=== PATIENT | female | born 1950 | race Caucasian/White ===

== ENCOUNTER 2017-09-16 18:43 | Observation (INO) | payer OTHER, MEDICARE ==
[~2017-09-16] VITALS: Ht 167.6 cm; Wt 104.3 kg
[2017-09-16 20:20] LABS: ABSOLUTE BASOPHIL COUNT 0 /CUMM (0.0-0.2); ABSOLUTE EOSINOPHIL COUNT 0.1 /CUMM (0.0-0.7); ABSOLUTE GRANULOCYTE CT 8.3 /CUMM (1.4-6.5); ABSOLUTE LYMPH COUNT 1.5 /CUMM (1.2-3.4); ABSOLUTE MONOCYTE COUNT 0.8 /CUMM (0.10-0.60); BASOPHIL % 0.4 % (0.0-2.0); GRANULOCYTE % 77.6 % (42.2-75.2); HEMATOCRIT 44.4 % (37-47); MEAN CORPUSCULAR HGB 28.9 PG (27.0-31.0); MEAN CORPUSCULAR HGB CONC 33.7 G/DL (33.0-37.0); MEAN CORPUSCULAR VOLUME 85.9 FL (81.0-99.0); PLATELET COUNT 215 /CUMM (130-400); RED BLOOD CELL CT 5.18 /CUMM (4.20-5.40); WHITE BLOOD CELL COUNT 10.7 /CUMM (4.8-10.8)
--- NOTE | 2017-09-16 21:05 | ED GI/GU/ABDOMINAL COMPLAINT ---
History of Present Illness General Chief Complaint: Abdominal Pain/Flank Pain Stated Complaint: ABDOMINAL PAIN Source: patient Exam Limitations: no limitations Vital Signs & Intake/Output Vital Signs & Intake/Output Vital Signs Date Time Temp Pulse Resp B/P B/P Pulse O2 O2 Flow FiO2 Mean Ox Delivery Rate 09/17 0212 98.3 81 18 148/86 96 Room Air 09/17 0135 97.8 89 18 134/88 96 Room Air 09/16 2237 99.1 93 18 156/94 98 Room Air 09/16 2146 Room Air 09/16 1901 97.6 94 18 166/86 99 Room Air ED Intake and Output 09/17 0000 09/16 1200 Intake Total 0 Output Total Balance 0 Intake, Oral 0 Patient 230 lb Weight Weight Reported by Patient Measurement Method Allergies Coded Allergies: No Known Allergies (09/16/17) Reconcile Medications Venlafaxine HCl (Venlafaxine HCl ER) 75 MG CAP.ER.24H 1 CAP PO DAILY MENTAL HEALTH (Reported) Triage Note: PT HAVING ABD PAIN STATES SHE HAS HX OF HERNIAS ON AND OFF FOR TWO WEEKS. PT STATES LAST WEEK SHE WAS VOMITING WHAT LOOKED LIKE STOOL. PT STATES SHE WENT TO HOSPITAL AND WAS TOLD SHE HAD A SMALL BLOCKAGE. PT HAD NG TUBE PLACED AND IT FIXED IT. PT STATES SHE HAD A SALAD AT LUNCH AND THEN BEGAN TO HAVE PAIN ON AND OFF AGAIN. PT STATES SHE THEN VOMITED. PT STATES SHE DID MOVE HER BOWELS TODAY. Triage Nurses Notes Reviewed? yes ? N Is pt currently ? No Duration: better Timing: recent history Quality/Severity: mild Severity Numbers: 1 Radiation: no radiation HPI: Patient is a 67-year-old female with a past medical history of approximate 5 years ago having a spontaneous perforation of colon or patient had a colostomy with reversal performed, patient states that approximately 2 weeks ago while in [place] she had abdominal pain and was observed in the small local hospital where her symptoms resolved she continue with her vacation however last week her pain exacerbated along with nausea and vomiting patient was seen at [facility] and was admitted for concerns of small bowel structure patient had an NG tube placed and patient had a spontaneous resolution of the obstruction, patient states that this week she has been complaining of mild achy abdominal discomfort and today after eating a chicken salad she had gradual onset of worsening abdominal pain that progressed to severe abdominal pain with retching bilious emesis and loose watery diarrhea production with no blood no melena. Patient states that symptoms of pain and nausea have completely resolved prior to being evaluated while waiting in the emergency room Patient denies any fever chills chest pain shortness of breath. (Paulie Vidal) Past History Travel History Traveled to [place] past 21 day No Medical History Any Pertinent Medical History? see below for history Gastrointestinal: PERF COLON COLOSTOMY REVERSED Surgical History Surgical History: colon resection Psychosocial History What is your primary language [place] Citizen Tobacco Use: Never used ETOH Use: occasional use Illicit Drug Use: denies illicit drug use Family History Hx Contributory? No (Paulie Vidal) Review of Systems Review of Systems Constitutional: Reports: no symptoms. EENTM: Reports: no symptoms. Respiratory: Reports: no symptoms. Cardiovascular: Reports: no symptoms. GI: Reports: see HPI. Genitourinary: Reports: no symptoms. Musculoskeletal: Reports: no symptoms. Skin: Reports: no symptoms. Neurological/Psychological: Reports: no symptoms. Hematologic/Endocrine: Reports: no symptoms. Immunologic/Allergic: Reports: no symptoms. All Other Systems: Reviewed and Negative (Paulie Vidal) Physical Exam Physical Exam General Appearance: no apparent distress, obese Head: atraumatic Eyes: Bilateral: normal appearance. Ears, Nose, Throat, Mouth: moist mucous membrane Neck: normal inspection Respiratory: no respiratory distress Cardiovascular: regular rate/rhythm Gastrointestinal: soft, non-tender Extremities: normal range of motion Skin: intact, normal color Core Measures ACS in differential dx? No Sepsis Present: No Sepsis Focused Exam Completed? No (Paulie Vidal) Progress Differential Diagnosis: AAA, AMI, appendicitis, biliary colic, bowel obstruction , colon cancer, cholecystitis, diverticulitis, endometritis, esophageal varices, gastritis, hepatitis, hernia, hemorrhoids, ischemic bowel, inflamm bowel dis, intrauterine , kidney stone, Jeanie-Linda tear, ovarian cyst, ovarian torsion, pancreatitis, PID/cervicitis, peptic ulcer, PUD/GERD, perforated viscous, SBO, UTI/pyelo Plan of Care: Orders Procedure Date/time Status Nothing by Mouth 09/17 B Active CBC WITHOUT DIFFERENTIAL 09/17 599 Active BASIC ELECTROLYTES PLUS BUN&CR 09/17 599 Active Weight 09/17 200 Active Vital Signs 09/17 200 Active Teach/Educate 09/17 200 Active Pain Treatment and Response 09/17 200 Active Nutritional Intake, Monitor 09/17 200 Active Isolation 09/17 020 Active Intake & Output 09/17 200 Active Patient Care Conference 09/17 200 Active Activity/Ambulation 09/17 200 Active Pathway - chart 09/17 010 Active Patient Data 09/17 010 Active Code Status 09/[address] in observation 09/17 UNK Active VTE Mechanical Prophylaxis 09/17 UNK Active Vital Signs 09/17 UNK Complete Intake & Output 09/17 UNK Active Activity/Ambulation 09/17 UNK Active ED Holding Orders 09/16 2354 Active Vital Signs 09/16 2354 Active Code Status 09/16 2354 Complete TROPONIN LEVEL 09/16 1924 Complete LIPASE 09/16 1924 Complete HEPATIC FUNCTION PANEL 09/16 1924 Complete CBC WITHOUT DIFFERENTIAL 09/16 1924 Complete BASIC METABOLIC PANEL 09/16 1924 Complete AMYLASE 09/16 1924 Complete EKG 09/16 1924 Active Current Medications Sig/Neda Start time Last Medication Dose Stop Time Status Admin Pantoprazole Sodium 40 MG DAILY 09/17 0900 AC (Protonix) Heparin Sodium 5,000 UNIT Q8 09/17 0600 AC (Porcine) Acetaminophen 1,000 MG Q6P PRN 09/17 011 AC (Ofirmev) N/A 1 UNIT (No Carrier) Dextrose/Sodium 1,000 ML .Q8H 09/17 0115 AC 09/17 Chloride 0205 (D5-Normal Saline) Morphine Sulfate 2 MG Q3P PRN 09/17 0115 AC 09/17 (MORPHINE SULFATE) 0135 Morphine Sulfate 4 MG Q3P PRN 09/17 011 AC (MORPHINE SULFATE) Ondansetron HCl 4 MG Q6-PRN PRN 09/17 011 AC (Zofran) Laboratory Tests 09/16/172009: Anion Gap 16, Estimated GFR > 60, BUN/Creatinine Ratio 20.0, Glucose 120 H, Calcium 10.4 H, Total Bilirubin 0.3, Direct Bilirubin 0.2, AST 30, ALT 62 H, Alkaline Phosphatase 82, Troponin I < 0.01, Total Protein 7.6, Albumin 4.6, Amylase 124 H, Lipase 389 H, CBC w Diff NO MAN DIFF REQ, RBC 5.18, MCV 85.9, MCH 28.9, MCHC 33.7, RDW 13.0, MPV 10.0, Gran % 77.6 H, Lymphocytes % 14.0 L, Monocytes % 7.0, Eosinophils % 1.0, Basophils % 0.4, Absolute Granulocytes 8.3 H, Absolute Lymphocytes 1.5, Absolute Monocytes 0.8 H, Absolute Eosinophils 0.1 , Absolute Basophils 0 Patient currently is resting comfortably at bedside states that all nausea vomiting and pain has resolved patient was offered medications for her presenting complaints however declines. 2227- patient states he had exacerbation of pain morphine was administered 2244- SURGERY WAS PAGED 2339 - SURGERY WAS PAGED discussed patient with Gilberto Jones MD was aware of patient's clinical presentation and will admit the patient. Discussed patient with surgical PA discussed disposition plan with patient and family members were aware and agree 0012 patient currently is resting currently denies any nausea vomiting or abdominal pain Diagnostic Imaging: Viewed by Me: CT Scan. Radiology Impression: acute abnormality Initial ED EKG: none Comments: PATIENT: LORRAINE SOLIZ PRESENT AGE: 67 PATIENT ACCOUNT NO: [id number] : 51 LOCATION: [facility] ORDERING PHYSICIAN: Paulie LEON SERVICE DATE: 09/16/17 EXAM TYPE: CAT - CT ABD & PELVIS W IV CONTRAST EXAMINATION: CT ABDOMEN AND PELVIS WITH CONTRAST CLINICAL INFORMATION: Abdominal pain. Concern for obstruction. COMPARISON: None. TECHNIQUE: Contiguous axial thin section helical images of the abdomen and pelvis were performed following the administration of 95 mL of intravenous Optiray 320. The data set was reformatted in the coronal and sagittal planes and reviewed on an independent workstation. DLP: 1162 mGy-cm. FINDINGS: The visualized lung bases are clear. The visualized portions of the heart are unremarkable. There is a small hiatal hernia. The liver is of normal size and diffuse decreased attenuation without focal lesions nor intrahepatic biliary ductal dilation. A normal gallbladder is identified. There is no wall thickening or discernible pericholecystic fluid. The spleen, pancreas, adrenal glands are unremarkable. Both kidneys are of normal size and attenuation without hydronephrosis or nephrolithiasis. Following the administration of IV contrast, prompt symmetric nephrograms are displayed. There is no abdominal free fluid. There is neither mesenteric nor retroperitoneal lymphadenopathy. There are multiple anterior abdominal wall defects through which passes fat and bowel. There are numerous dilated loops of small bowel with several air-fluid levels indicative of a distal small bowel obstruction, though possibly present at multiple locations. There is no pelvic free fluid. The urinary bladder is unremarkable. There is neither pelvic nor inguinal lymphadenopathy. Bone windows: Neither sclerotic nor lytic bone lesions are identified. IMPRESSION: Multiple dilated loops of small bowel passing through multiple anterior abdominal wall defects. The appearance is phlebotomy services representative of a distal small bowel obstruction, though there may be multiple sites of obstruction. Hepatic steatosis. Small hiatal hernia. DICTATED BY: Frankie Lucero MD DATE/TIME DICTATED:09/16/172228 (Paulie Vidal) Departure Departure Disposition: STILL A PATIENT Condition: Guarded Clinical Impression Primary Impression: Bowel obstruction Referrals: Veronique Arredondo (PCP/Family) Departure Forms: Customer Survey General Discharge Information Admission Note Spoke With: Robert LAKHANI,Gilberto Greer Documentation of Exam: Documentation of any treatments & extenuating circumstances including Concerns Regarding Discharge (functional status, medication knowledge or non-compliance, living conditions, etc.) that warrant an admission rather than observation: [ Patient requires close monitoring frequent abdominal exams serial imaging pain management anti-emetics repeat labs and surgery consultation and possible surgical intervention for small bowel distraction] (Paulie Vidal) PA/PR SPECIALIST Co-Sign Statement Statement: ED Attending supervision documentation- [x] I saw and evaluated the patient. I have also reviewed all the pertinent lab results and diagnostic results. I agree with the findings and the plan of care as documented in the PA's/PR SPECIALIST's documentation. [] I have reviewed the ED Record and agree with the PA's/PR SPECIALIST's documentation. [] Additions or exceptions (if any) to the PAs/PR SPECIALIST's note and plan are summarized below: [] (Kacey LAKHANI,Jermaine Zaidi)
--- NOTE | 2017-09-16 22:41 | CT SCAN REPORT ---
EXAMINATION: CT ABDOMEN AND PELVIS WITH CONTRAST CLINICAL INFORMATION: Abdominal pain. Concern for obstruction. COMPARISON: None. TECHNIQUE: Contiguous axial thin section helical images of the abdomen and pelvis were performed following the administration of 95 mL of intravenous Optiray 320. The data set was reformatted in the coronal and sagittal planes and reviewed on an independent workstation. DLP: 1162 mGy-cm. FINDINGS: The visualized lung bases are clear. The visualized portions of the heart are unremarkable. There is a small hiatal hernia. The liver is of normal size and diffuse decreased attenuation without focal lesions nor intrahepatic biliary ductal dilation. A normal gallbladder is identified. There is no wall thickening or discernible pericholecystic fluid. The spleen, pancreas, adrenal glands are unremarkable. Both kidneys are of normal size and attenuation without hydronephrosis or nephrolithiasis. Following the administration of IV contrast, prompt symmetric nephrograms are displayed. There is no abdominal free fluid. There is neither mesenteric nor retroperitoneal lymphadenopathy. There are multiple anterior abdominal wall defects through which passes fat and bowel. There are numerous dilated loops of small bowel with several air-fluid levels indicative of a distal small bowel obstruction, though possibly present at multiple locations. There is no pelvic free fluid. The urinary bladder is unremarkable. There is neither pelvic nor inguinal lymphadenopathy. Bone windows: Neither sclerotic nor lytic bone lesions are identified. IMPRESSION: Multiple dilated loops of small bowel passing through multiple anterior abdominal wall defects. The appearance is charter representative of a distal small bowel obstruction, though there may be multiple sites of obstruction. Hepatic steatosis. Small hiatal hernia.
[2017-09-16] MEDS ORDERED: VENLAFAXINE HCL75 M1 PO (23:07)
--- NOTE | 2017-09-17 00:09 | History & Physical Pre-Op ---
Génesis Hicks 09/17/17 0005: General Information and HPI History of Present Illness: 67F with crampy sharp colic abdominal pain, recently hospitalized x2 over last 10days while on vacation in [place]. She did feel "back to normal" after being tx conservatively with ngt in hospital until yesterday when this pain returned. Denies n/v, no cp, no sob. She is 5yrs sp hartmanns with colostomy and diverting loop ileostomy for perforated sigmoid, performed at [place], which all has been reversed. She has known mulitple ventral hernias which she has seen a surgeon for evaluation, and was instructed to loose weight prior to repair. She recently underwent L TKR due to OA in order to help her increase her activity level to loose weight. She has lost 35lbs since April. Up until 10 days ago, her hernias were asymptomatic. Of note, she is requesting Dr. Mendez as she works with his . PMHx: depression, oa sp L TKR 06/2017, mo, 5yr sp hartmanns with dli and reversal Allergies/Medications Allergies: Coded Allergies: No Known Allergies (09/16/17) Home Med list Venlafaxine HCl (Venlafaxine HCl ER) 75 MG CAP.ER.24H 1 CAP PO DAILY MENTAL HEALTH (Reported) Past History Medical History Gastrointestinal: hiatal hernia, PERForated COLON s/p hartmanns and reversal Musculoskeletal: osteoarthritis Psychiatric: depression Endocrine: obesity Surgical History Pertinent Surgical History: colon resection (hartmanns/dli sp reversal,2012), knee replacement (left, 2017) Past Family/Social History Psychosocial History Services at Home None Smoking Status: Never Smoked ETOH Use: occasional use Illicit Drug Use: denies illicit drug use Employment History Employment: Employed 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 Exam & Diagnostic Data Last 24 Hrs of Vital Signs/I&O Vital Signs Date Time Temp Pulse Resp B/P B/P Pulse O2 O2 Flow FiO2 Mean Ox Delivery Rate 09/167 99.1 93 18 156/94 98 Room Air 09/16 2146 Room Air 09/16 1901 97.6 94 18 166/86 99 Room Air Intake & Output 09/17 0800 09/17 0000 09/16 1600 Intake Total 0 Output Total Balance 0 Intake, Oral 0 Patient 230 lb Weight Weight Reported by Patient Measurement Method Physical Exam: gen-nad card-s1s2 rrr pulm-ctab abd-mo, multiple defects appreciated, nontender, no r/g, +bs, large easily reducible bulge to right of midline ext- calves soft nt bl Last 24 Hrs of Labs/Todd: Laboratory Tests 09/16/172009: Anion Gap 16, Estimated GFR > 60, BUN/Creatinine Ratio 20.0, Glucose 120 H, Calcium 10.4 H, Total Bilirubin 0.3, Direct Bilirubin 0.2, AST 30, ALT 62 H, Alkaline Phosphatase 82, Troponin I < 0.01, Total Protein 7.6, Albumin 4.6, Amylase 124 H, Lipase 389 H, CBC w Diff NO MAN DIFF REQ, RBC 5.18, MCV 85.9, MCH 28.9, MCHC 33.7, RDW 13.0, MPV 10.0, Gran % 77.6 H, Lymphocytes % 14.0 L, Monocytes % 7.0, Eosinophils % 1.0, Basophils % 0.4, Absolute Granulocytes 8.3 H, Absolute Lymphocytes 1.5, Absolute Monocytes 0.8 H, Absolute Eosinophils 0.1 , Absolute Basophils 0 Diagnostic Data Other Results SERVICE DATE: 09/16/17 EXAM TYPE: CAT - CT ABD & PELVIS W IV CONTRAST EXAMINATION: CT ABDOMEN AND PELVIS WITH CONTRAST CLINICAL INFORMATION: Abdominal pain. Concern for obstruction. COMPARISON: None. TECHNIQUE: Contiguous axial thin section helical images of the abdomen and pelvis were performed following the administration of 95 mL of intravenous Optiray 320. The data set was reformatted in the coronal and sagittal planes and reviewed on an independent workstation. DLP: 1162 mGy-cm. FINDINGS: The visualized lung bases are clear. The visualized portions of the heart are unremarkable. There is a small hiatal hernia. The liver is of normal size and diffuse decreased attenuation without focal lesions nor intrahepatic biliary ductal dilation. A normal gallbladder is identified. There is no wall thickening or discernible pericholecystic fluid. The spleen, pancreas, adrenal glands are unremarkable. Both kidneys are of normal size and attenuation without hydronephrosis or nephrolithiasis. Following the administration of IV contrast, prompt symmetric nephrograms are displayed. There is no abdominal free fluid. There is neither mesenteric nor retroperitoneal lymphadenopathy. There are multiple anterior abdominal wall defects through which passes fat and bowel. There are numerous dilated loops of small bowel with several air-fluid levels indicative of a distal small bowel obstruction, though possibly present at multiple locations. There is no pelvic free fluid. The urinary bladder is unremarkable. There is neither pelvic nor inguinal lymphadenopathy. Bone windows: Neither sclerotic nor lytic bone lesions are identified. IMPRESSION: Multiple dilated loops of small bowel passing through multiple anterior abdominal wall defects. The appearance is national sales representative of a distal small bowel obstruction, though there may be multiple sites of obstruction. Hepatic steatosis. Small hiatal hernia. Assessment/Plan Assessment/Plan: A- 67F with SBO due to multiple ventral hernias/loss of domain, HX hartmanns with dli sp reversal, stable. P- obs to surgical service will need surgical repair of hernias, likely this admission npo ngt if worsens iv meds ivf serial abd exams serial labs dvt ppx oob, ambulate dw Dr. Jones As Ranked By This Provider Problem List: 1. Bowel obstruction 2. Depression 3. Osteoarthritis 4. Obesity 5. Hx of resection of large bowel 6. History of total left knee replacement Ottoniel Mendez MD 09/17/17 0923: Attending MD Review Statement Attending Statement Attending MD Statement: examined this patient, discuss w/resident/PA/HOUSE PLAYER, reviewed images Attending Assessment/Plan: patient presents with small bowel obstruction related to adhesions and/or intermittent incarceration of vental/incisional hernia. Currently, pain is resolved and she denies n/v. Suspect rapid resolution of sbo, related to high fiber diet. CT images reviewed and discussed with radiology. There is site of obstruction at ventral hernia, but may be more related to adhesive band. There are two stoma site hernias as well but are not the site of obstruction. they are reducible and contain colon on imaging. Overall this is a complex process that would be best dealt with under less urgent circumstances. She has recurrent SBO, one week from last admission in [place]. Will require open hernia repair with lysis adhesions and repair of multiple abdominal wall hernias. Best approach to address the midline hernia would be bilateral components separation. However with the two stoma hernias, flaps will be compromized to a certain degree. She understands. Best outcome will be to allow sbo to resolve and allow for more weight loss to occur. However given two SBO in two weeks that chances for emergent process developing are much higher. Therefore recommend return next week for hernia repair at a time in which the bowel is not distended and less chance for enterotomy/prolonged ileus. Operative intervention this admission reserved for failure of nonoperative management of SBO.
--- NOTE | 2017-09-17 01:03 | Admission Core Measures ---
Acute Coronary Syndrome (CM) ACS Core Measures Acute Coronary Syndrome Diagnosis No Congestive Heart Failure (NEW) CHF Core Measures Congestive Heart Failure Diagnosis No Cerebrovascular Accident CVA Core Measures CVA/TIA Diagnosis No Venous Thromboembolism VTE Core Darrell (View Protocol) VTE Risk Factors Age>40 No Mechanical VTE Prophylaxis d/t N/A MechProphylax Ordered No VTE Pharm Prophylaxis d/t NA PharmProphylax ordered Problem List As ranked by this Provider includes Assessment & Plan 1. Bowel obstruction 2. Depression 3. Osteoarthritis 4. Obesity 5. Hx of resection of large bowel 6. History of total left knee replacement HOME MEDS Home Med List Venlafaxine HCl (Venlafaxine HCl ER) 75 MG CAP.ER.24H 1 CAP PO DAILY MENTAL HEALTH (Reported)
[2017-09-17 02:12] VITALS: BP 148/86
[2017-09-17 06:20] VITALS: BP 136/68
--- NOTE | 2017-09-17 08:07 | PN- General Surgery ---
Subjective Subjective: Patient reports pain has resolved since she came to the floor last night, however she is worried symptoms will return if she goes home. She denies nausea, vomiting, belching, flatus or having a BM. She reports having an appetite. She offers no other complaints. Objective Vital Signs and I&Os Vital Signs Date Time Temp Pulse Resp B/P B/P Pulse O2 O2 Flow FiO2 Mean Ox Delivery Rate 09/18 619 98.1 77 18 136/68 97 Room Air 09/17 0212 98.3 81 18 148/86 96 Room Air 09/17 0135 97.8 89 18 134/88 96 Room Air 09/16 223 99.1 93 18 156/94 98 Room Air 09/16 2146 Room Air 09/16 1901 97.6 94 18 166/86 99 Room Air Intake & Output 09/17 1600 09/17 0800 09/17 0000 09/16 1600 09/16 0800 09/16 0000 Intake Total 500 0 Output Total Balance 500 0 Intake, IV 500 Intake, Oral 0 Patient 230 lb 230 lb Weight Weight Bed scale Reported by Patient Measurement Method Physical Exam: Gen - resting comfortably in nad Cardiac - S1S2 noted Lungs - CTAB Abd - soft, obese, multiple defects appreciated, faint bs, slightly tympanic, nontender, no rebound or guarding noted Ext - no edema or calf tenderness Current Medications: Current Medications Sig/Neda Start time Last Medication Dose Route Stop Time Status Admin Acetaminophen 1,000 MG Q6P PRN 09/17 114 AC N/A 1 UNIT IV Dextrose/Sodium 1,000 ML .Q8H 09/17 011 AC 09/17 Chloride IV 0205 Heparin Sodium 5,000 UNIT Q8 09/17 0600 AC 09/17 (Porcine) SC 0620 Morphine Sulfate 0 .STK-MED ONE 09/17 013 DC .ROUTE Morphine Sulfate 2 MG Q3P PRN 09/17 011 AC 09/17 IV 0135 Morphine Sulfate 4 MG Q3P PRN 09/17 114 IV Morphine Sulfate 0 .STK-MED ONE 09/16 2234 DC .ROUTE Morphine Sulfate 2 MG ONCE ONE 09/16 2229 DC 09/16 IV 09/16 Ondansetron HCl 4 MG Q6-PRN PRN 09/17 114 IV Pantoprazole Sodium 40 MG DAILY 09/17 09 AC IV Sodium Chloride 1,000 ML BOLUS ONE 09/17 0045 DC 09/17 IV 09/17 0244 0100 Results Last 48 Hours of Labs: Laboratory Tests 09/17 Chemistry Sodium (137 - 145 mmol/L) Pending 144 Potassium (3.5 - 5.1 mmol/L) Pending 4.0 Chloride (98 - 107 mmol/L) Pending 102 Carbon Dioxide (22 - 30 mmol/L) Pending 27 Anion Gap (5 - 16) Pending 16 BUN (7 - 17 mg/dL) Pending 12 Creatinine (0.5 - 1.0 mg/dL) Pending 0.6 Estimated GFR (>60 ml/min) > 60 BUN/Creatinine Ratio (7 - 25 %) Pending 20.0 Glucose (65 - 99 mg/dL) 120 H Calcium (8.4 - 10.2 mg/dL) 10.4 H Total Bilirubin (0.2 - 1.3 mg/dL) 0.3 Direct Bilirubin (< 0.4 mg/dL) 0.2 AST (14 - 36 U/L) 30 ALT (9 - 52 U/L) 62 H Alkaline Phosphatase (<127 U/L) 82 Troponin I (< 0.11 ng/ml) < 0.01 Total Protein (6.3 - 8.2 g/dL) 7.6 Albumin (3.5 - 5.0 g/dL) 4.6 Amylase (30 - 110 U/L) 124 H Lipase (23 - 300 U/L) 389 H Hematology CBC w Diff Pending NO MAN DIFF REQ WBC (4.8 - 10.8 /CUMM) Pending 10.7 RBC (4.20 - 5.40 /CUMM) Pending 5.18 Hgb (12.0 - 16.0 G/DL) Pending 15.0 Hct (37 - 47 %) Pending 44.4 MCV (81.0 - 99.0 FL) Pending 85.9 MCH (27.0 - 31.0 PG) Pending 28.9 MCHC (33.0 - 37.0 G/DL) Pending 33.7 RDW (11.5 - 14.5 %) Pending 13.0 Plt Count (130 - 400 /CUMM) Pending 215 MPV (7.4 - 10.4 FL) Pending 10.0 Gran % (42.2 - 75.2 %) 77.6 H Lymphocytes % (20.5 - 51.1 %) 14.0 L Monocytes % (1.7 - 9.3 %) 7.0 Eosinophils % (0 - 5 %) 1.0 Basophils % (0.0 - 2.0 %) 0.4 Absolute Granulocytes (1.4 - 6.5 /CUMM) 8.3 H Absolute Lymphocytes (1.2 - 3.4 /CUMM) 1.5 Absolute Monocytes (0.10 - 0.60 /CUMM) 0.8 H Absolute Eosinophils (0.0 - 0.7 /CUMM) 0.1 Absolute Basophils (0.0 - 0.2 /CUMM) 0 Assessment/Plan Assessment/Plan 67F with a past surgical hx of hartmanns with dil s/p reversal with recurrent SBO secondary to multiple ventral hernias/loss of domain, stable Keep NPO, IVF NGT if symptoms worsens/return Serial abd exams DVT ppx - alps, hsq Encourage oob, ambulation F/u labs Cont observation Surgical intervention vs elective surgery this admission Will d/w Dr. Mendez Core Measures Venous Thromboembolism VTE Risk Factors Age>40 No Mechanical VTE Prophylaxis d/t N/A MechProphylax Ordered No VTE Pharm Prophylaxis d/t NA PharmProphylax ordered Venous Thromboembolism VTE Risk Factors Age>40 No Mechanical VTE Prophylaxis d/t N/A MechProphylax Ordered No VTE Pharm Prophylaxis d/t NA PharmProphylax ordered
[2017-09-17 08:57] LABS: ABSOLUTE BASOPHIL COUNT 0 /CUMM (0.0-0.2); ABSOLUTE EOSINOPHIL COUNT 0.1 /CUMM (0.0-0.7); ABSOLUTE GRANULOCYTE CT 1.4 /CUMM (1.4-6.5); ABSOLUTE MONOCYTE COUNT 0.5 /CUMM (0.10-0.60); MEAN CORPUSCULAR VOLUME 87.7 FL (81.0-99.0)
[2017-09-17 09:37] LABS: BASOPHIL % 0.8 % (0.0-2.0); EOSINOPHIL % 2.8 % (0-5); MEAN CORPUSCULAR HGB 29.4 PG (27.0-31.0); MEAN CORPUSCULAR HGB CONC 33.5 G/DL (33.0-37.0); MEAN PLATELET VOLUME 9.5 FL (7.4-10.4); PLATELET COUNT 167 /CUMM (130-400); RED BLOOD CELL CT 4.29 /CUMM (4.20-5.40)
[2017-09-17 09:48] LABS: GRANULOCYTE % 35.1 % (42.2-75.2); HEMATOCRIT 37.6 % (37-47)
--- NOTE | 2017-09-17 12:17 | RADIOLOGY REPORT ---
EXAMINATION: XR ABDOMEN MULTIPLE VIEWS CLINICAL INDICATION: Follow-up small bowel obstruction. Abdominal pain. COMPARISON: CT of abdomen pelvis, 09/16/2017 TECHNIQUE: 2 views of the abdomen. FINDINGS: The visualized lung bases are unremarkable. Abdominal wall hernias and dilated small bowel were observed on the recent CT exam. Within the lower abdomen, gas-filled small bowel measures up to approximately 3 cm diameter. No evidence of pneumatosis intestinalis or pneumoperitoneum. Bowel gas is seen to level of the nondilated rectum. Findings are suggestive of a partial small bowel obstruction. The visualized bones are intact. There is dextroscoliosis of the partially visualized degenerated thoracic spine. IMPRESSION: Small bowel remains mildly dilated within the lower abdomen/pelvis. The partial bowel obstruction appears slightly improved compared to the abdominal CT exam of 09/16/2017, and gas is now seen within the rectum.
[2017-09-17 14:07] VITALS: BP 130/70
[2017-09-17 22:31] VITALS: BP 122/72
[2017-09-18 06:13] VITALS: BP 126/72
--- NOTE | 2017-09-18 07:23 | PN- General Surgery ---
See Addendum Subjective Subjective: feeling better, no pain, wants to dc home today, no n/v, passing flatus, +bm this am Objective Vital Signs and I&Os Vital Signs Date Time Temp Pulse Resp B/P B/P Pulse O2 O2 Flow FiO2 Mean Ox Delivery Rate 09/18 612 97.8 71 20 126/72 95 09/17 2231 98.4 70 18 122/72 95 09/17 1407 98.4 75 20 130/70 96 Room Air Intake & Output 09/18 0000 09/17 1600 09/17 0000 Intake Total 520 740 360 500 0 Output Total Balance 520 740 360 500 0 Intake, IV 400 500 500 Intake, Oral 120 240 360 0 Patient 230 lb 230 lb 230 lb Weight Weight Bed scale Reported by Patient Measurement Method Physical Exam: gen- nad card-s1s2 pulm- ctab abd- soft nd, multiple defects appreciated, nontender ext- calves soft nt Assessment/Plan Assessment/Plan A- 67F SBO, improving, +bm this am, stable. P- full liquids hl oob, ambualate dvt ppx dc planning- dc home on fulls if tolerates, plan for elective surgery with dr monk saturday next week. Core Measures Venous Thromboembolism VTE Risk Factors Age>40 No Mechanical VTE Prophylaxis d/t N/A MechProphylax Ordered No VTE Pharm Prophylaxis d/t NA PharmProphylax ordered
[2017-09-18 09:21] LABS: ABSOLUTE BASOPHIL COUNT 0 /CUMM (0.0-0.2); ABSOLUTE EOSINOPHIL COUNT 0.1 /CUMM (0.0-0.7); ABSOLUTE GRANULOCYTE CT 0.7 /CUMM (1.4-6.5); ABSOLUTE LYMPH COUNT 1.6 /CUMM (1.2-3.4); ABSOLUTE MONOCYTE COUNT 0.3 /CUMM (0.10-0.60); BASOPHIL % 0.9 % (0.0-2.0); EOSINOPHIL % 3.4 % (0-5); GRANULOCYTE % 25.1 % (42.2-75.2); HEMATOCRIT 39.1 % (37-47); MEAN CORPUSCULAR HGB CONC 33.2 G/DL (33.0-37.0); MEAN CORPUSCULAR VOLUME 87.3 FL (81.0-99.0); MEAN PLATELET VOLUME 9.8 FL (7.4-10.4); PLATELET COUNT 184 /CUMM (130-400); RBC DISTRIBUTION WIDTH 13.3 % (11.5-14.5); RED BLOOD CELL CT 4.48 /CUMM (4.20-5.40); WHITE BLOOD CELL COUNT 2.7 /CUMM (4.8-10.8)
--- NOTE | 2017-09-18 10:25 | Patient Discharge Instructions ---
Discharge Instructions General Discharge Information You were seen/treated for: bowel obstruction due to ventral hernia Watch for these problems: worsening abdominal pain, inability to pass stool or flatus, inability to tolerate food or drink, fever>101 Diet Recommended Diet: Low Residue Activity Activity Self Limited: Yes Acute Coronary Syndrome Inclusion Criteria At DC or during hospital stay patient has or had the following: ACS DIAGNOSIS No Discharge Core Measures Meds if any: Prescribed or Continued at Discharge Meds if any: NOT Prescribed or Continued at Discharge Congestive Heart Failure Inclusion Criteria At DC or during hospital stay patient has or had the following: CHF DIAGNOSIS No Discharge Core Measures Meds if any: Prescribed or Continued at Discharge Meds if any: NOT Prescribed or Continued at Discharge Cerebrovascular accident Inclusion Criteria At DC or during hospital stay patient has or had the following: CVA/TIA Diagnosis No Discharge Core Measures Meds if any: Prescribed or Continued at Discharge Meds if any: NOT Prescribed or Continued at Discharge Venous thromboembolism Inclusion Criteria VTE Diagnosis No VTE Type NONE VTE Confirmed by (Test) NONE Discharge Core Measures - Per Current guidelines, there needs to be overlap - treatment for the first 5 days of Warfarin therapy. - If discharged on Warfarin prior to 5 days of - overlap therapy, the patient will need to be - assessed for post discharge needs including - *Post discharge parental anticoagulation - *Warfarin and/or parental anticoagulation education - *Follow up date to check INR post discharge At least 5 days overlap therapy as Inpatient No Meds if any: Prescribed or Continued at Discharge Note: Overlap Therapy is Warfarin and Anticoagulant Meds if any: NOT Prescribed or Continued at Discharge
--- NOTE | 2017-09-18 17:21 | Surgical Discharge Summary ---
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 Nigerian ETOH Use: occasional use Review of Systems: see preop [facility] Hospital Course Course Attending Physician: Ottoniel Mendez MD Primary Care Physician: Veronique Arredondo Hospital Course: Patient admitted for intestinal obstruction due to adhesions and midline incisional hernia. Her symptoms resolve shortly after admission. Bowel function returned. Her diet was advanced and she was discharged home. Plan will be to perform complex incisional hernia repair next week. Allergies: Coded Allergies: No Known Allergies (09/16/17) Disposition Summary Disposition Principal Diagnosis: Intestinal obstruction Additional Diagnosis: Incisional hernia with obstruction Obsity Discharge Disposition: home or self care Discharge Instructions General Discharge Information Code Status: Full Code Patient's Diet: low fiber Patient's Activity: ad sherita Follow-Up Instructions/Appts: Surgery arranged for Monday, September 25 Medications at Discharge Discharge Medications: Continue taking these medications: Venlafaxine HCl (Venlafaxine HCl ER) 75 MG CAP.ER.24H 1 Capsule ORAL DAILY Qty = 90 Comments: Last Taken: 09/18/17 Time: 9:00 AM Copies To: Veronique Arredondo
== END 2017-09-18 14:17 ==
LOC: ERH 18:43 → 2NA 09-17 01:05 → ERHI 09-17 01:05 → ENRESERV 09-17 01:14 → ERHI 09-17 01:24 → 2NA 09-17 01:54 → ENPENDDIS 09-18 10:29 → 2NA 09-18 14:17
PROVIDERS: Pediatrics; Physician Assistant; Physician Assistant Surgical
DX: K43.0 Incisional hernia with obstruction, without gangrene (principal); F32.9 Major depressive disorder, single episode, unspecified; Z96.652 Presence of left artificial knee joint; E66.9 Obesity, unspecified; M19.90 Unspecified osteoarthritis, unspecified site
CPT/HCPCS: 36592; 74021; 74177; 82436; 93005; 93010; 96372; 96374; 96375; G0378; J0131; J1644; J7042

== ENCOUNTER 2017-09-25 02:29 | Inpatient (IN) | payer OTHER, MEDICARE ==
[~2017-09-25] VITALS: Ht 167.6 cm; Wt 105.0 kg
[~2017-09-25 02:29] MED LIST: VENLAFAXINE HCL75 M1 PO
--- NOTE | 2017-09-25 18:51 | Operative Report ---
Operative/Inv Procedure Report Surgery Date: 09/25/17 Name of Procedure: 1. Bilateral transversus abdominis release (myofascial advancement flap). 2. Incarcerated incisional hernia repair with mesh 3. Lysis of adhesions Pre-Operative Diagnosis: Incarcerated incisional hernia Post-Operative Diagnosis: same Estimated Blood Loss: 50ml to 100ml Surgeon/Director Information Security: Andrea LAKHANI,Ottoniel Bridges/Roman LEON Anesthesia: general endotracheal tube (0) Implants: 25 x 25 cm Strattice mesh Drains: 15 Egyptian Adam-Bond round 2 Specimens: Hernia sac Operative Indication: This is a 67-year-old woman with obesity who presents with recurrent intestinal obstruction related to multiple abdominal wall incisional hernias. She status post Camara's procedure with subsequent reversal and diverting ileostomy. Ileostomy was subsequently reversed. She has an incisional hernia in the midline as well as 2 incisional hernias and bilateral upper quadrants. Operative/Procedure Note Note: After consent patient brought to the operating room laid supine. General anesthesia was obtained and her abdomen was prepped and draped. Skin the midline was incised sharply through pre-existing scar. It was actually lengthened quite a bit. We came down this obtains tissues with cautery. We encountered a hernia sac. We entered the sac which assisted in dissection. There were adhesions throughout the sac of omentum and small bowel. These were taken down with sharp and cautery dissection. The sac was then circumferentially dissected, excised with cautery and passed off the field. We then proceeded to perform lysis of adhesions. There were numerous dense adhesions of small bowel to other loops of bowel. There is also a kink near her ileostomy reversal site. Any 1 of these inflammatory adhesions could have been the source of her obstruction as they were all causing twisting and kinking of the bowel. All adhesions were lysed from the terminal ileum to the ligament of Treitz. Many of these adhesions were very dense, requiring lysis with scalpel. No bowel injury was noted. After completing the lysis of adhesions, the abdomen was fully explored. There were 2 fascial defects in the right upper quadrant and left upper quadrant related to ileostomy and colostomy respectively. Adhesions to those were taken down sharply. I had planned to perform posterior component separation (TAR). Began by incising the medial edge of the rectus fascia and created a plane in the retrorectal space. We started on the right side as there was a larger stoma site hernia defect on that side. They herniated made the dissection much more difficult due to the adhesions around it. We made every attempt to preserve neurovascular branches to the rectus. It was very difficult around the hernia site. We circumferentially dissected the hernia and created preperitoneal plane there. We then performed a component released by incising the transversalis fascia just medial to the insertion of the internal oblique. This was done from the costal margin to the arcuate line. Inferior to that, there was essentially preperitoneal tissue which was dissected down to the pubis. The plane below the transversalis was then developed to allow advancement of the flap. After completing the advancement flap, the stoma site was then closed from underneath with a running 0 Maxon suture, oriented transverse. I then turned my attention to the contralateral side. The colostomy site in the left midabdomen was much smaller than the right -sided hernia. We carried our dissection similarly. Advancement flap created. We then closed the midline fascia with a running 0 Maxon suture. Inferiorly was essentially peritoneum which was closed to allow retrorectus placement of the mesh. The stoma site defects in the fascia were closed transversely with running 2-0 Vicryl. We measured the defect and noted that 25 x 25 cm mesh would be required. I chose Strattice mesh due to the size availability and concern about infection. 30 x 30 cm mesh was chosen and it was cut to fit the defect. It was placed in the retrorectus space and anchored circumferentially with interrupted 0 Vicryl sutures to the cut edge of the transversalis fascia laterally and linea alba immediately. We had a nice underlay that was flat without wrinkling and covered both stoma defects quite well with 4 cm overlap laterally. I then closed the anterior fascial layer to the mesh to create moderate amount of tension. There is no way that the fascia could be closed primarily due to the size of the central defect. This was performed with running 0 Maxon suture. Wound was then irrigated with saline. 215 Egyptian Adam-Bond round drains were placed bilaterally and anchored to the skin with 2-0 nylon suture. The subcutaneous tissue was then closed with running 2-0 Vicryl and the skin closed with staple. Sterile dressings were applied. Sponge and needle counts are correct CC: Ricky LOEN,Veronique Lockwood
[2017-09-25 20:43] VITALS: BP 148/70
[2017-09-25 22:44] VITALS: BP 140/80
[2017-09-26] VITALS (7 sets, daily range): BP systolic 91–120; BP diastolic 59–78
--- NOTE | 2017-09-26 07:15 | PN- Student ---
See Addendum Annette Gomes 09/26/17 0700: Subjective Subjective: Saw the patient this morning POD1 and she is doing well. She hasn't been oob yet or moved much in bed, so she states that she has hardly any pain when not moving. Last night she had an episode of nausea, w/o vomiting. Her sullivan is in place, IV fluids still running. Tolerating some sips of water since yesterday. Denies cp,sob. No flatus/BM so far. Objective Objective: Physical exam: Gen:O&Ax3, laying comfortably in bed, in no apparent distress Lungs: CTA heart: s1 and s2 normal. RRR Abdomen: hypoactive bs, soft, non-distended, incisional site tenderness, dressing placed midline- clear/dry/intact. [address] Left one- 5 cc overnight Right chante- 50 cc overnight. Skin: warm and dry Results Results: Vital Signs Date Time Temp Pulse Resp B/P B/P Pulse O2 O2 Flow FiO2 Mean Ox Delivery Rate 09/26 0617 97.8 71 20 118/62 97 Nasal 1.0L Cannula 09/26 0310 98.0 67 20 118/68 94 Nasal 2.0L Cannula 09/26 0110 97.8 70 20 120/78 98 Nasal Cannula 09/26 0000 96 Nasal 1.0L Cannula 09/25 2244 98.3 71 19 140/80 96 Nasal Cannula 09/25 2043 98.4 75 18 148/70 96 Nasal 2.0L Cannula 09/25 2024 96 Room Air 2.0L Microbiology Date/Time Procedure - Status Source Growth 09/25 1031 Urine Culture - RECD URINE ROUT Orders Procedure Date/time Status Regular Diet 09/26 B Active Clear Liquid Diet 09/25 D Complete Weight 09/25 2101 Complete Vital Signs 09/25 2101 Active Teach/Educate 09/25 2101 Active Pain Treatment and Response 09/25 2101 Active Nutritional Intake, Monitor 09/25 2101 Active Isolation 09/25 2101 Active Intake & Output 09/25 2101 Active Patient Care Conference 09/25 2101 Active Activity/Ambulation 09/25 2101 Active Pathway - chart 09/25 1852 Active Admit to inpatient 09/25 1852 Active Patient Data 09/25 1852 Active Code Status 09/25 1852 Active PATHOLOGY SPECIMEN 09/25 1659 Active CULTURE,URINE 09/25 1110 Active VTE Mechanical Prophylaxis 09/25 UNK Active Vital Signs 09/25 UNK Active Drains/Tubes 09/25 UNK Active Intake & Output 09/25 UNK Active Sullivan, Insertion/Removal/Asses 09/25 UNK Active Activity/Ambulation 09/25 UNK Active Microbiology 09/25 1031 URINE ROUT: Urine Culture - RECD Assessment/Plan Assessment: This a 67 yo female with an extensive surgical history including Froilan's w/ reversal and diverting ilesostomy that was eventually reversed, she presented with incarerated incisional site hernia in the midline and 2 other incisonal site hernias. She is POD 1 s/p ventral hernia repairs with mesh. She is stable this morning. Plan: -D/c sullivan this morning -June d/c IV fluids later today depending on bowel function -Change dressing POD 2 -Left drain with 5 cc of drainage, Left with 50 cc overnight, will discuss w/ Dr. Mendez about removing left drain -ALPS and heparin sq for dvt ppx -C/w with pain medication ordered -Perioperative abx complete -Encourage IS and ambulation -Advance diet as tolerated, clears today Debbie Naranjo 09/26/17 0720: Assessment/Plan Plan: Patient seen with student agree with above exam and plan. D/C ELIZ sullivan will discuss with Dr. Mendez
--- NOTE | 2017-09-26 09:45 | Admission Core Measures ---
Acute Coronary Syndrome (CM) ACS Core Measures Acute Coronary Syndrome Diagnosis No Congestive Heart Failure (NEW) CHF Core Measures Congestive Heart Failure Diagnosis No Cerebrovascular Accident CVA Core Measures CVA/TIA Diagnosis No Venous Thromboembolism VTE Core Darrell (View Protocol) VTE Risk Factors Surgery No Mechanical VTE Prophylaxis d/t N/A MechProphylax Ordered No VTE Pharm Prophylaxis d/t NA PharmProphylax ordered Problem List As ranked by this Provider includes Assessment & Plan 1. Incisional hernia, incarcerated HOME MEDS Home Med List Venlafaxine HCl (Venlafaxine HCl ER) 75 MG CAP.ER.24H 1 CAP PO DAILY MENTAL HEALTH (Reported)
--- NOTE | 2017-09-26 09:50 | Patient Discharge Instructions ---
Discharge Instructions General Discharge Information You were seen/treated for: Incarcerated incisional hernia You had these procedures: 1. Bilateral transversus abdominis release 2. Incarcerated incisional hernia repair with mesh 3. Lysis of adhesions Watch for these problems: Increased pain, nausea, vomiting, fever > 101.3, redness, swelling or drainage from incision, increased or change in chante drainage Call Surgeon to remove: Ophelia No bath, but you may shower: Yes Other wound care: Keep incision clean and dry Special Instructions: empty drains twice a day or when full Diet Continue normal diet: No Recommended Diet: Low Residue Activity Full Activity/No Limits: No Activity Self Limited: Yes Pounds, do NOT lift more than: 10 Other activity limits: No heavy lifting or strenous activity until follow up Additional ACTIVITY Info: she will be home with VNA services not self care Acute Coronary Syndrome Inclusion Criteria At DC or during hospital stay patient has or had the following: ACS DIAGNOSIS No Discharge Core Measures Meds if any: Prescribed or Continued at Discharge Meds if any: NOT Prescribed or Continued at Discharge Congestive Heart Failure Inclusion Criteria At DC or during hospital stay patient has or had the following: CHF DIAGNOSIS No Discharge Core Measures Meds if any: Prescribed or Continued at Discharge Meds if any: NOT Prescribed or Continued at Discharge Cerebrovascular accident Inclusion Criteria At DC or during hospital stay patient has or had the following: CVA/TIA Diagnosis No Discharge Core Measures Meds if any: Prescribed or Continued at Discharge Meds if any: NOT Prescribed or Continued at Discharge Venous thromboembolism Inclusion Criteria VTE Diagnosis No VTE Type NONE VTE Confirmed by (Test) NONE Discharge Core Measures - Per Current guidelines, there needs to be overlap - treatment for the first 5 days of Warfarin therapy. - If discharged on Warfarin prior to 5 days of - overlap therapy, the patient will need to be - assessed for post discharge needs including - *Post discharge parental anticoagulation - *Warfarin and/or parental anticoagulation education - *Follow up date to check INR post discharge At least 5 days overlap therapy as Inpatient No Meds if any: Prescribed or Continued at Discharge Note: Overlap Therapy is Warfarin and Anticoagulant Meds if any: NOT Prescribed or Continued at Discharge
[2017-09-26 12:04] LABS: ABSOLUTE BASOPHIL COUNT 0 /CUMM (0.0-0.2); ABSOLUTE EOSINOPHIL COUNT 0.2 /CUMM (0.0-0.7); ABSOLUTE GRANULOCYTE CT 3.8 /CUMM (1.4-6.5); ABSOLUTE LYMPH COUNT 1.6 /CUMM (1.2-3.4); ABSOLUTE MONOCYTE COUNT 0.4 /CUMM (0.10-0.60); BASOPHIL % 0.5 % (0.0-2.0); EOSINOPHIL % 3.2 % (0-5); MEAN CORPUSCULAR HGB 29.3 PG (27.0-31.0); MEAN CORPUSCULAR HGB CONC 33.2 G/DL (33.0-37.0); MEAN CORPUSCULAR VOLUME 88.2 FL (81.0-99.0); MEAN PLATELET VOLUME 9.5 FL (7.4-10.4); PLATELET COUNT 159 /CUMM (130-400); RBC DISTRIBUTION WIDTH 12.9 % (11.5-14.5)
[2017-09-26 12:11] LABS: GRANULOCYTE % 63.6 % (42.2-75.2)
[2017-09-27 06:00] VITALS: BP 138/80
--- NOTE | 2017-09-27 06:48 | PN- Student ---
See Addendum Annette Gomes 09/27/17 0636: Subjective Subjective: This morning the patient is doing ok, she did have some nausea last night and this morning that was relieved with zofran. No episodes of vomiting. Her sullivan was removed yesterday and she was oob once last night to urinate and walk around. She states that she did have some increased pain with movement. This morning, her pain is well controlled, she is very sore though. IV fluids still running this morning. Tolerating clear liquid diet, no flatus/BM so far. Denies cp,sob. Objective Objective: Physical exam: Gen:O&Ax3, laying comfortably in bed, in no apparent distress Lungs: CTA heart: s1 and s2 normal. RRR Abdomen: hypoactive bs, soft, non-distended, abd is diffusely tender, dressing placed midline- clear/dry/intact. [address] Serosanguineous fluid. Left one- 75 cc removed last night Right chante- 30 cc output Skin: warm and dry Results Results: Vital Signs Date Time Temp Pulse Resp B/P B/P Pulse O2 O2 Flow FiO2 Mean Ox Delivery Rate 09/27 0600 99.4 86 22 138/80 99 Room Air 09/26 2247 98.2 78 20 110/62 98 Room Air 09/26 2030 98.3 79 20 91/59 93 Room Air 09/26 1430 98.0 70 20 112/70 92 Room Air 09/26 1133 98.3 71 18 100/60 93 Room Air 09/26 0617 97.8 71 20 118/62 97 Nasal 1.0L Cannula 09/26 0310 98.0 67 20 118/68 94 Nasal 2.0L Cannula 09/26 0110 97.8 70 20 120/78 98 Nasal Cannula 09/26 0000 96 Nasal 1.0L Cannula 09/25 2244 98.3 71 19 140/80 96 Nasal Cannula 09/25 2043 98.4 75 18 148/70 96 Nasal 2.0L Cannula 09/25 2024 96 Room Air 2.0L Last 24 Hours I&Os 09/27 0800 08/ 0000 09 1600 Intake Total 700 1600 Output Total 105 610 Balance 595 990 Intake, IV 600 800 Intake, Oral 100 800 Output, 105 10 Drainage Output, Urine 600 Laboratory Tests 09/26/17 1025: CBC w Diff NO MAN DIFF REQ, RBC 4.20, MCV 88.2, MCH 29.3, MCHC 33.2, RDW 12.9, MPV 9.5, Gran % 63.6, Lymphocytes % 25.9, Monocytes % 6.8, Eosinophils % 3.2, Basophils % 0.5, Absolute Granulocytes 3.8, Absolute Lymphocytes 1.6, Absolute Monocytes 0.4, Absolute Eosinophils 0.2, Absolute Basophils 0 Microbiology Date/Time Procedure - Status Source Growth 09/25 1031 Urine Culture - RES URINE ROUT Orders Procedure Date/time Status Clear Liquid Diet 09/26 B Active CBC WITHOUT DIFFERENTIAL 09/26 932 Complete Misc Message 09/26 UNK Active Discontinue Nursing Interventi 09/26 UNK Active Clear Liquid Diet 09/25 D Complete Weight 09/25 2101 Complete Vital Signs 09/25 2101 Active Teach/Educate 09/25 2101 Active Pain Treatment and Response 09/25 2101 Active Nutritional Intake, Monitor 09/25 2101 Active Isolation 09/25 2101 Active Intake & Output 09/25 2101 Active Patient Care Conference 09/25 2101 Active Activity/Ambulation 09/25 210 Active Pathway - chart 09/25 185 Active Admit to inpatient 09/25 185 Active Patient Data 09/25 185 Active Code Status 09/25 1853 Active PATHOLOGY SPECIMEN 09/25 1659 Complete CULTURE,URINE 09/25 1110 Active VTE Mechanical Prophylaxis 09/25 UNK Active Vital Signs 09/25 UNK Active Drains/Tubes 09/25 UNK Active Intake & Output 09/25 UNK Active Sullivan, Insertion/Removal/Asses 09/25 UNK Complete Activity/Ambulation 09/25 UNK Active Laboratory Tests 09/26/17 1025: CBC w Diff NO MAN DIFF REQ, RBC 4.20, MCV 88.2, MCH 29.3, MCHC 33.2, RDW 12.9, MPV 9.5, Gran % 63.6, Lymphocytes % 25.9, Monocytes % 6.8, Eosinophils % 3.2, Basophils % 0.5, Absolute Granulocytes 3.8, Absolute Lymphocytes 1.6, Absolute Monocytes 0.4, Absolute Eosinophils 0.2, Absolute Basophils 0 Microbiology 09/25 1031 URINE ROUT: Urine Culture - RES Assessment/Plan Assessment: This a 67 yo female with an extensive surgical history including Froilan's w/ reversal and diverting ilesostomy that was reversed as well, she presented with incarerated incisional site hernia in the midline and 2 other incisonal site hernias. She is POD 2 s/p ventral hernia repairs with mesh. She is stable this morning. Plan: -Sullivan is out, she is voiding on her own -c/w IV fluids until return of bowel function -C/w clear liquid diet, she is tolerating ok -Change dressing today -Left drain with 75 cc output last evening, 30 cc output from right. Leave both drains in place -ALPS and heparin sq for dvt ppx -C/w with pain medication ordered -Perioperative abx complete -Encourage IS, ambulation, oob -Zofran prn for nausea Maria Luz Lilly 09/27/17 0740: Resident Review Statement Resident Statement: examined this patient Other Findings: Agree with above EDWARD-S note. Still nauseated. Complains of headache. No flatus or BM yet. Continue clear liquids only. Continue drains. OOB and ambulate Will continue Zofran prn N/V. HSQ for DVT ppx. F/U am labwork.
[2017-09-27 14:56] VITALS: BP 100/70
[2017-09-27 22:03] VITALS: BP 120/72
[2017-09-28 06:19] VITALS: BP 128/76
--- NOTE | 2017-09-28 09:40 | PN- General Surgery ---
See Addendum Subjective Subjective: POD#3 S/P INCISIONAL HERNIA REPAIR NO PAIN COMPLAINTS NO MAJOR ISSUES OVERNGIHT DENIES CP,SOB, NO NV OR BELCHING WITH FULL LIQUID DIET +FLATUS, NO BM Objective Vital Signs and I&Os Vital Signs Date Time Temp Pulse Resp B/P B/P Pulse O2 O2 Flow FiO2 Mean Ox Delivery Rate 09/28 0619 98.6 84 18 128/76 91 Room Air 09/27 2203 98.3 83 20 120/72 91 Room Air 09/27 1456 98.5 86 20 100/70 96 Room Air Intake & Output 09/28 1600 09/28 0800 09/28 0000 09/27 1600 09/27 0800 09/27 0000 Intake Total 115 742 5051 700 700 Output Total 45 115 400 10 105 Balance 455 285 700 690 595 Intake, IV 300 300 700 600 600 Intake, Oral 200 100 400 100 100 Output, 45 115 10 105 Drainage Output, Urine 400 Physical Exam: CV: RRR LUNGS: CLEAR ABD: SOFT, +BS EXPEXTED TENDERNESS TO PALP NO GUARDING TUCKER: CONT SEROSANGUINOUS DRAINAGE EXT: WARM, NO CALF TENDERNESS Assessment/Plan Assessment/Plan SURGICAL STABLE PLAN ADVANCE DIET TO LRD TOLERATED CONT OOB TITRATE PAIN MEDS POSSIBLE D/C LATER TODAY WITH VNA Core Measures Venous Thromboembolism VTE Risk Factors Surgery No Mechanical VTE Prophylaxis d/t N/A MechProphylax Ordered No VTE Pharm Prophylaxis d/t NA PharmProphylax ordered
[2017-09-28 11:10] LABS: ABSOLUTE BASOPHIL COUNT 0 /CUMM (0.0-0.2); ABSOLUTE EOSINOPHIL COUNT 0.2 /CUMM (0.0-0.7); ABSOLUTE GRANULOCYTE CT 1.8 /CUMM (1.4-6.5); ABSOLUTE MONOCYTE COUNT 0.4 /CUMM (0.10-0.60); BASOPHIL % 0.9 % (0.0-2.0); EOSINOPHIL % 5.4 % (0-5); GRANULOCYTE % 53.3 % (42.2-75.2); HEMATOCRIT 36.2 % (37-47); MEAN CORPUSCULAR HGB 29.5 PG (27.0-31.0); MEAN CORPUSCULAR HGB CONC 33.7 G/DL (33.0-37.0); MEAN CORPUSCULAR VOLUME 87.5 FL (81.0-99.0); MEAN PLATELET VOLUME 8.7 FL (7.4-10.4); PLATELET COUNT 180 /CUMM (130-400); RED BLOOD CELL CT 4.13 /CUMM (4.20-5.40); WHITE BLOOD CELL COUNT 3.4 /CUMM (4.8-10.8)
[2017-09-28 14:00] VITALS: BP 120/60
[2017-09-28] MEDS ORDERED: OXYCODONE HCL5 M1 PO (16:46)
--- NOTE | 2017-09-29 10:00 | Surgical Discharge Summary ---
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 Home Who Do You Live With? Spouse Services at Home: None What is Your Primary Language? French Review of Systems: see preop hp Hospital Course Course Attending Physician: Ottoniel Mendez MD Primary Care Physician: Veronique Arredondo Hospital Course: Admitted after hernia repair for IVF in treatment of anticipated ileus. Pain was adequately controlled. Bowel function returned, diet advanced and discharged home. Drains to be removed as outpatient. Allergies: Coded Allergies: No Known Allergies (09/24/17) Disposition Summary Disposition Principal Diagnosis: Incarcerated incisional hernia Additional Diagnosis: partial intestinal hernia Discharge Disposition: home health services Discharge Instructions General Discharge Information Code Status: Full Code Patient's Diet: regular Patient's Activity: no lifting >20lbs Follow-Up Instructions/Appts: one week Medications at Discharge Discharge Medications: Continue taking these medications: Venlafaxine HCl (Venlafaxine HCl ER) 75 MG CAP.ER.24H 1 Capsule ORAL DAILY Qty = 90 Comments: Last Taken: 09/28/17 Time: 9:00 AM Start taking the following new medications: Oxycodone HCl (Oxycodone HCl) 5 MG TABLET 1-2 Tablet ORAL EVERY 4-6 HOURS NEEDED as needed for PAIN SCALE 4-6 ( MODERATE) Qty = 36 No Refills Comments: Last Taken: 09/28/17 Time: 2PM Copies To: Veronique Arredondo
== END 2017-09-28 18:50 | disposition home health service (06) | DRG 336 ==
LOC: STS 02:29 → 2NA 18:36 → PACUH 18:36 → ENRESERV 19:40 → ENTRNSPT 20:08 → EDTRNSPTSTS 20:17 → 2NA 20:27 → CMPTRNSPT 20:31 → ENTRNSPT 09-28 18:08 → EDTRNSPTSTS 09-28 18:37 → EDTRNSPT 09-28 18:37 → 2NA 09-28 18:50 → CMPTRNSPT 09-28 18:58
PROVIDERS: Physician Assistant Surgical; Surgery
PROC: 0DN80ZZ Release Small Intestine, Open Approach (ICD-10-PCS; principal; 2017-09-25)
PROC: 0KUL07Z Supplement Left Abdomen Muscle with Autologous Tissue Substitute, Open Approach (ICD-10-PCS; principal; 2017-09-25)
PROC: 0WUF0JZ Supplement Abdominal Wall with Synthetic Substitute, Open Approach (ICD-10-PCS; principal; 2017-09-25)
PROC: 0KUK07Z Supplement Right Abdomen Muscle with Autologous Tissue Substitute, Open Approach (ICD-10-PCS; principal; 2017-09-25)
PROC: 0KNL0ZZ Release Left Abdomen Muscle, Open Approach (ICD-10-PCS; principal; 2017-09-25)
PROC: 0KNK0ZZ Release Right Abdomen Muscle, Open Approach (ICD-10-PCS; principal; 2017-09-25)
DX: K43.0 Incisional hernia with obstruction, without gangrene (principal); K56.50 Intestinal adhesions [bands], unspecified as to partial versus complete obstruction; K56.7 Ileus, unspecified; Z96.652 Presence of left artificial knee joint; E66.9 Obesity, unspecified; Z68.37 Body mass index [BMI] 37.0-37.9, adult; Z90.49 Acquired absence of other specified parts of digestive tract; K21.9 Gastro-esophageal reflux disease without esophagitis
CPT/HCPCS: 2NASP; 36415; 82436; 87086; C9290; J0131; J0690; J1644; J1885; J2250; J2405; J7042